=== PATIENT | female | born 1970 | race Caucasian/White ===

== ENCOUNTER → 2017-10-15 | Day surgery (SDC) | payer OTHER ==
[~2017-10-15] VITALS: Ht 154.9 cm; Wt 125.6 kg
--- NOTE | 2017-10-20 20:50 | Operative Report ---
Operative/Inv Procedure Report Surgery Date: 10/15/17 Name of Procedure: Laparoscopy endometrial biopsy lysis of adhesions Pre-Operative Diagnosis: Pelvic pain metromenorrhagia Post-Operative Diagnosis: Same adhesions Estimated Blood Loss: 50ml to 100ml Surgeon/Obgyn Nurse: Semaj GEIGER,Mena Louise Anesthesia: general endotracheal tube Operative/Procedure Note Note: Procedure note patient was taken the operating room placed in supine position after adequate induction general anesthesia patient was placed in dorsolithotomy the vagina prepped draped fashion bladder was catheterized termination under anesthesia performed I at this point on an endometrial biopsy was obtained with a Pipelle on the Aguayo cannula was left in place surgeon regowned and gloved below the umbilicus a stab incision was made to allow for the entry of Veress needle the abdomen was inserted possibly fully Z CO2 to liver edge dullness which point the Veress needle was removed a 10 mm trocar was inserted atraumatically the umbilicus sheath remained in place through that sheath laparoscope placed under direct visualization a 5 mm port was placed 2 fingerbreadths of symptoms pubis in midline patient tolerated that well on at this point lysis of adhesions were performed using scissors a peanut patient tolerated that well on since removed from the abdomen as well as maximal CO2 incision the umbilicus oversewn using 0 for the fascia 3 over the skin Marcaine was injected underneath both incisions the skin on incision above the symphysis pubis was reapproximated interrupteds with 30 on at the end the case the Aguayo cannula was moved all instruments removed from the vagina the patient was returned spine position Ureña was removed the patient was awakened from anesthesia and transferred recovery room awake alert counts correct Findings: Normal size uterus no adnexal masses on adhesions from the omentum on to the pelvic sidewall
== END ==
LOC: STS 10-08 07:00
DX: N92.1 Excessive and frequent menstruation with irregular cycle (principal); N73.6 Female pelvic peritoneal adhesions (postinfective); N71.1 Chronic inflammatory disease of uterus; R10.2 Pelvic and perineal pain
CPT/HCPCS: 81025; 88305; C9399; J0131; J2250